=== PATIENT | male | born 1995 | race Caucasian/White ===

== ENCOUNTER 2018-06-27 07:18 | Emergency (ER) | payer BC, SELFPAY ==
[2018-06-27 07:20] VITALS: BP 152/99; PULSE 84; RESP 18; TEMP 36.9; O2SAT 100; BMI 35.7
--- NOTE | 2018-06-27 07:30 | ED.VISSUMM ---
- ER Visit Summary Date of Service: 06/27/18 Chief Complaint: Abdominal and shoulder pain History of Present Illness: The patient is a 23 M past medical or surgical history. Patient states the last 4-6 weeks he gets intermittent shoulder and right upper quadrant abdominal pain. At times the pain gets severe. Nausea and vomiting. It is not associated with food. He denies any hematemesis he denies any diarrhea or melena. He does get nausea and vomiting when the pain gets severe. Often this occurs in the middle the night and wakes him up. He denies any fever. He denies any abdominal trauma. He has never had any abdominal surgeries. Physical Examination: Well-appearing young male. Vital signs are stable and afebrile. He does not look septic or toxic. Currently is in no acute stress. H EENT exam is unremarkable. Neck is nontender. No lymphadenopathy. Lungs are clear to auscultation bilaterally. Heart is regular rhythm no murmur. Abdomen is soft. Nondistended. Normal bowel sounds. No peritoneal signs. Mild epigastric tenderness. No Nicholson sign. No McBurney's point tenderness. Nondistended no signs of obstruction. Positive bowel sounds. Moving all 4 extremities. Neurovascular intact. Back exam nontender. Right shoulder has full range of motion. No gross bony deformity. Nontender. 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 Tight sensation. And radial pulse. Neurologic exam is normal. Test Results: CBC showed a slightly elevated white count of 11.6 with a normal hemoglobin and hematocrit. Electrolytes unremarkable normal creatinine and gap. Liver enzymes are normal. Lipase was normal. Emergency Department Course and Treatment: Patient did not want anything for pain and nausea at this time. He will be worked up for possible gallbladder disease. Treatment Plan: Repeat exam at 15 patient doing well. Abdomen was benign. He denies and his family member salome all his test results and follow-up with his primary care physician for an outpatient ultrasound and further evaluation. They know to return if he is feeling worse. Disposition: Discharge Impression: Acute right upper quadrant abdominal pain of uncertain etiology This note was generated with [employer] dictation software. It may contain incorrect words, spelling, and punctuation that were not noted in review of the chart prior to signing ED Disposition - Plan for ED Patient: Disposition: Home or Assisted Living Chief Complaint: Abd Pain Instructions: ED Abdominal Pain Unkn Cause Referrals: Brendan Sarmiento MD [Primary Care Provider] - 1 Week Additional Instructions: Call follow-up your primary care physician you may need an outpatient ultrasound to evaluate her gallbladder for possible gallstones.
--- NOTE | 2018-06-27 07:33 | ED.DCSUM_ITS ---
- ER Visit Summary Date of Service: 06/27/18 Chief Complaint: Abdominal and shoulder pain History of Present Illness: The patient is a 23 M past medical or surgical history. Patient states the last 4-6 weeks he gets intermittent shoulder and right upper quadrant abdominal pain. At times the pain gets severe. Nausea and vomiting. It is not associated with food. He denies any hematemesis he denies any diarrhea or melena. He does get nausea and vomiting when the pain gets severe. Often this occurs in the middle the night and wakes him up. He denies any fever. He denies any abdominal trauma. He has never had any abdominal surgeries. Physical Examination: Well-appearing young male. Vital signs are stable and afebrile. He does not look septic or toxic. Currently is in no acute stress. H EENT exam is unremarkable. Neck is nontender. No lymphadenopathy. Lungs are clear to auscultation bilaterally. Heart is regular rhythm no murmur. Abdomen is soft. Nondistended. Normal bowel sounds. No peritoneal signs. Mild epigastric tenderness. No Nicholson sign. No McBurney's point tenderness. Nondistended no signs of obstruction. Positive bowel sounds. Moving all 4 extremities. Neurovascular intact. Back exam nontender. Right shoulder has full range of motion. No gross bony deformity. Nontender. 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 Tight sensation. And radial pulse. Neurologic exam is normal. Test Results: CBC showed a slightly elevated white count of 11.6 with a normal hemoglobin and hematocrit. Electrolytes unremarkable normal creatinine and gap. Liver enzymes are normal. Lipase was normal. Emergency Department Course and Treatment: Patient did not want anything for pain and nausea at this time. He will be worked up for possible gallbladder disease. Treatment Plan: Repeat exam at 15 patient doing well. Abdomen was benign. He denies and his family member salome all his test results and follow-up with his primary care physician for an outpatient ultrasound and further evaluation. They know to return if he is feeling worse. Disposition: Discharge Impression: Acute right upper quadrant abdominal pain of uncertain etiology This note was generated with [employer] dictation software. It may contain incorrect words, spelling, and punctuation that were not noted in review of the chart prior to signing ED Disposition - Plan for ED Patient: Disposition: Home or Assisted Living Chief Complaint: Abd Pain Instructions: ED Abdominal Pain Unkn Cause Referrals: Brendan Sarmiento MD [Primary Care Provider] - 1 Week Additional Instructions: Call follow-up your primary care physician you may need an outpatient ultrasound to evaluate her gallbladder for possible gallstones.
--- NOTE | 2018-06-27 07:34 | ED.DEP ---
ED Disposition - Plan for ED Patient: Disposition: Home or Assisted Living Chief Complaint: Abd Pain Instructions: ED Abdominal Pain Unkn Cause Referrals: Brendan Sarmiento MD [Primary Care Provider] - 1 Week Additional Instructions: Call follow-up your primary care physician you may need an outpatient ultrasound to evaluate her gallbladder for possible gallstones. Return to the ER if increasing pain, fever, vomiting blood or black or bloody stools. Otherwise follow-up your primary care physician for further evaluation.
[2018-06-27 07:47] LABS: Absolute Lymphocyte Count 1.45 X10^3/ul (0.83-4.51); Absolute Neutrophil Count 8.5 X10^3/uL (2.0-7.7); Basophil# 0.09 X10^3/uL; Basophil% 0.8 % (0-1); Eosinophil# 0.53 X10^3/uL; Eosinophils% 4.6 % (0-5); Hematocrit 44.9 % (40-54); Lymphocyte # 1.45 X10^3/ul (4.0); Lymphocyte % 12.5 % (19-41); Mean Corp Hgb Conc 35.6 g/gl (32-36); Mean Corpuscular Hgb 30.7 pg (27.0-32.0); Mean Platelet Vol. 9.5 fl (6.2-12.0); Monocyte# 0.99 X10^3/uL; Monocyte% 8.6 % (0-10); Neutrophil # 8.49 X10^3/uL (2.7-7.7); Neutrophil % 73.3 % (47-70); Platelet Count 297 K/mm3 (150-450); RBC Distribution Width CV 12.5 % (11.6-14.6); Red Blood Count 5.22 M/mm3 (4.6-6.2); White Blood Count 11.6 K/mm3 (4.4-11.0)
[2018-06-27 07:51] LABS: POSITIVE COUNT NO; POSITIVE DIFFERENTIAL NO; POSITIVE MORPHOLOGY NO
[2018-06-27 08:04] LABS: BUN 18 mg/dL (7-18); Creatinine, Serum 1.03 mg/dL (0.70-1.30); Estimated Creatinine Clearance 114.19 ml/min; Glucose 103 mg/dL (74-106)
[2018-06-27 08:05] LABS: AST(SGOT) 16 U/L (15-37); Alanine Aminotransfer ALT/SGPT 23 U/L (16-61); Albumin, Serum 3.7 g/dL (3.2-5.0); Alkaline Phosphatase 87 U/L (45-117); Anion Gap 8 (5-15); BUN/Creat Ratio 17.5 RATIO (10-20); Bilirubin, Direct 0.13 mg/dL (0.00-0.30); Calcium,Total 8.7 mg/dL (8.5-10.1); Chloride 105 mmol/L (98-107); EST Glomerular Filtration Rate 94 mL/min (>60); Est Glom Filt Rate - Afr Amer 114 mL/min (>60); Globulin 3.8 g/dL (2.2-4.2); Lipase 108 U/L (73-393); Potassium 3.8 mmol/L (3.5-5.1); Protein, Total 7.5 g/dL (6.4-8.2); Sodium Level 139 mmol/L (136-145)
== END 2018-06-27 08:27 | disposition home or self-care (01) ==
LOC: ED 07:48
PROVIDERS: Emergency Provider Emergency Medicine; Family Provider Pediatrics; PCP Pediatrics
DX: R10.11 Right upper quadrant pain (principal)
CPT/HCPCS: 80048; 80076; 83690; 85025; 99282; A4216

== ENCOUNTER 2018-07-31 06:05 | Emergency (ER) | payer BC, SELFPAY ==
[2018-07-31 06:06] VITALS: BP 160/109; PULSE 63; RESP 16; TEMP 36.6; O2SAT 99
[2018-07-31 06:10] VITALS: BP 160/109; PULSE 60; RESP 16; TEMP 36.6; O2SAT 99; BMI 36.3
--- NOTE | 2018-07-31 06:35 | US_ITS ---
STUDY: ABDOMINAL ULTRASOUND - RIGHT UPPER QUADRANT REASON FOR VISIT: Male, 23 years old. Epigastric pain. TECHNIQUE: Ultrasound evaluation of the right upper quadrant was performed with real-time and static granger-scale imaging. TECHNICAL QUALITY: Limited. Examination limited by bowel gas. COMPARISON: None. FINDINGS: Liver: The liver measures 16.4 cm. There is normal echogenicity of the liver. The bile ducts are within normal limits. There is hepatic color flow. The direction of portal flow is hepatopetal. There is no demonstrated mass lesion. Gallbladder: Normal distended gallbladder. The gallbladder wall measures 0.6 mm. There is a negative sonographic Nicholson's sign. There is no pericholecystic fluid. There are multiple echogenic structures within the gallbladder, consistent with multiple gallstones. There is surrounding dependent layering sludge within the gallbladder lumen. Common Bile Duct (C.B.D.): The common bile duct measures 2.8 mm. Pancreas: There is nonvisualization of the pancreas due to overlying bowel gas. Right Kidney: Normal size of the right kidney. The right kidney measures 11.1 x 5.9 x 5.9 cm. Normal renal cortex. The right cortex measures 2.0 cm. There is no demonstrated renal mass or cyst. There is no right hydronephrosis. US/Gallbladder IMPRESSION: 1. Multiple gallstones with layering sludge without evidence of pericholecystic fluid or wall thickening. No evidence of positive Nicholson sign. Clinically correlate for biliary colic. 2. Nonvisualized pancreas due to overlying bowel gas. Electronically Signed: Brois Felton DO at 8:22 EDT , Service support ,
[2018-07-31] MEDS: Morphine 4 MG/ML Syringe IV (06:45)
[2018-07-31] MEDS: 0.9% Normal Saline 1,000 ML 1000 ML IV (06:45)
[2018-07-31] MEDS: Ondansetron 4 MG/2 ML Vial IV ×2 (06:46→08:59)
--- NOTE | 2018-07-31 06:50 | ED.DCSUM_ITS ---
Addendum entered and electronically signed by Garrison Asif MD 07/31/18 08:46: Patient's gallbladder ultrasound showed multiple gallstones. Otherwise no acute abnormality. No pericholecystic fluid. No Nicholson sign. No gallbladder wall thickening. On repeat exam at oh 8:40 AM the patient is doing well. Abdomen is benign. He has no Nicholson sign. I discussed all test results with he and his father. He will be discharged home to follow-up with a local surgeon for discussion of cholecystectomy. He knows return if increasing pain, intractable vomiting or fever. Acute abdominal pain in the right upper quadrant secondary to biliary colic with newly diagnosed gallstones on ultrasound Addendum entered and electronically signed by Garrison Asif MD 07/31/18 08:05: Patient turned over to me by the overnight physician at oh 7:30 AM. Patient's labs included a CBC that is normal. White count of 8. Normal hemoglobin. BMP that is normal. Liver enzymes are normal. Lipase that is normal. Patient is being given a second dose of IV Zofran. We are awaiting the ultrasound report. Original Note: - ER Visit Summary Date of Service: 07/31/18 Chief Complaint: Abdominal pain History of Present Illness: The patient is a 23 M with right upper quadrant abdominal pain. This started about 2 hours ago. It radiates to his right shoulder. Associated with nausea, vomiting, and diarrhea. He had this previously around . He had had laboratory evaluation, but did not have imaging. His workup was unremarkable and he went home. He denies any other medical issues or past surgeries. No fevers or jaundice. No other pains. No cardiac or respiratory symptoms. Physical Examination: Afebrile. Vitals unremarkable except for a blood pressure of 160/109. The patient is alert and oriented. He appears uncomfortable but not toxic or in distress. Heart regular rate and rhythm. Lungs clear in all doan. Abdomen tender in the right upper quadrant. No guarding or rebound. Skin normal in color without pallor or jaundice. Test Results: CBC, CMP, lipase, and right upper quadrant ultrasound are pending. Emergency Department Course and Treatment: Patient was treated with morphine and Zofran while awaiting results. I am concerned for hepatobiliary pathology. At the time of this dictation, labs and ultrasound are pending. Patient has had his pain medication. His pain seems to have subsided. The oncoming doctor will check the results of the imaging and labs. Treatment Plan: As above Disposition: Pending further evaluation Impression: Pending further evaluation This note was generated with [employer] dictation software. It may contain incorrect words, spelling, and punctuation that were not noted in review of the chart prior to signing ED Disposition - Plan for ED Patient: Chief Complaint: Abd Pain Referrals: Care Physician,No Primary [Primary Care Provider] -
[2018-07-31 07:24] LABS: Absolute Neutrophil Count 4.7 X10^3/uL (2.0-7.7); Basophil# 0.06 X10^3/uL; Basophil% 0.7 % (0-1); Eosinophils% 7.1 % (0-5); Hemoglobin 15.6 g/dl (13.0-16.5); Lymphocyte % 24.9 % (19-41); Mean Corp Hgb Conc 33.9 g/gl (32-36); Mean Corpuscular Hgb 29.9 pg (27.0-32.0); Mean Corpuscular Volume 88.1 fL (80-94); Mean Platelet Vol. 9.9 fl (6.2-12.0); Monocyte# 0.94 X10^3/uL; Monocyte% 11.2 % (0-10); Neutrophil # 4.71 X10^3/uL (2.7-7.7); Platelet Count 285 K/mm3 (150-450); RBC Distribution Width CV 12.7 % (11.6-14.6); RBC Distribution Width SD 40.8 fl (35.1-43.9); Red Blood Count 5.22 M/mm3 (4.6-6.2); White Blood Count 8.4 K/mm3 (4.4-11.0)
[2018-07-31 07:25] LABS: POSITIVE COUNT NO; POSITIVE DIFFERENTIAL NO; POSITIVE MORPHOLOGY NO
[2018-07-31 07:53] LABS: ALB/GLOB Ratio 1.1 RATIO (0.9-2.4); AST(SGOT) 14 U/L (15-37); Alanine Aminotransfer ALT/SGPT 25 U/L (16-61); Albumin, Serum 3.9 g/dL (3.2-5.0); Alkaline Phosphatase 80 U/L (45-117); Anion Gap 6 (5-15); BUN 16 mg/dL (7-18); BUN/Creat Ratio 15.4 RATIO (10-20); Calcium,Total 8.5 mg/dL (8.5-10.1); Chloride 105 mmol/L (98-107); Creatinine, Serum 1.04 mg/dL (0.70-1.30); EST Glomerular Filtration Rate 93 mL/min (>60); Est Glom Filt Rate - Afr Amer 112 mL/min (>60); Estimated Creatinine Clearance 113.09 ml/min; Globulin 3.6 g/dL (2.2-4.2); Glucose 105 mg/dL (74-106); Lipase 115 U/L (73-393); Potassium 3.6 mmol/L (3.5-5.1); Protein, Total 7.5 g/dL (6.4-8.2); Sodium Level 140 mmol/L (136-145)
[2018-07-31 08:06] VITALS: BP 153/101; PULSE 91; RESP 20; O2SAT 97
--- NOTE | 2018-07-31 08:13 | NURSING ---
pt does not want zofran at this time. nausea is starting to pass on its own so he would like to wait
--- NOTE | 2018-07-31 08:47 | ED.DEP ---
ED Disposition - Plan for ED Patient: Disposition: Home or Assisted Living Chief Complaint: Abd Pain Instructions: Discharge Instructions for Gallstones Prescriptions: Ondansetron [Zofran Odt] 4 mg PO Q4H PRN PRN #10 tab.rapdis PRN Reason: Nausea Referrals: Silvia Garcia MD [STAFF PHYSICIAN] - As soon as possible Lc Colin MD [STAFF PHYSICIAN] - As soon as possible Additional Instructions: Return if intractable pain, vomiting or fever. Call and follow-up with a local surgeon I gave you [address] Silvia Garcia with the [facility] or Dr. Sanjay Colin who works here for the hospital. Both are good local general surgeons. Motrin and/or Tylenol for pain.
--- NOTE | 2018-07-31 08:53 | DCINST.ED_ITS ---
ED Disposition - Plan for ED Patient: Disposition: Home or Assisted Living Chief Complaint: Abd Pain Instructions: Discharge Instructions for Gallstones Prescriptions: Ondansetron [Zofran Odt] 4 mg PO Q4H PRN PRN #10 tab.rapdis PRN Reason: Nausea Referrals: Silvia Garcia MD [STAFF PHYSICIAN] - As soon as possible Lc Colin MD [STAFF PHYSICIAN] - As soon as possible Additional Instructions: Return if intractable pain, vomiting or fever. Call and follow-up with a local surgeon I gave you [address] Silvia Garcia with the [facility] or Dr. Sanjay Colin who works here for the hospital. Both are good local general surgeons. Motrin and/or Tylenol for pain.
[2018-07-31] MEDS: Ketorolac 30 MG/ML Syringe IV (08:58)
== END 2018-07-31 09:08 | disposition home or self-care (01) ==
PROVIDERS: Emergency Provider Emergency Medicine
DX: K80.70 Calculus of gallbladder and bile duct without cholecystitis without obstruction (principal); R10.11 Right upper quadrant pain
CPT/HCPCS: 76705; 80053; 83690; 85025; 96361; 96374; 96375; 96376; 99283; J7030; A4216; J2405

== ENCOUNTER 2018-08-09 08:55 | Day surgery (SDC) | payer BC, SELFPAY ==
--- NOTE | 2018-08-09 09:05 | EKG12_ITS ---
Test Reason : PREOP Blood Pressure : / mmHG Vent. Rate : 082 BPM Atrial Rate : 082 BPM P-R Int : 152 ms QRS Dur : 088 ms QT Int : 354 ms P-R-T Axes : 044 081 046 degrees QTc Int : 413 ms Normal sinus rhythm Normal ECG No previous ECGs available Confirmed by AMADA BROWN, TOM ([id number]), business editor FAUSTINA REGALADO ([id number] on 08/15/2018 11:12:21 AM Referred By: cL Colin Confirmed By:TOM YBARRA MD
[2018-08-09 09:24] VITALS: BP 132/68; PULSE 81; RESP 16; TEMP 35.9; O2SAT 98; BMI 36.2
--- NOTE | 2018-08-09 10:50 | PCM.OPRPT ---
Problem List (1) Calculus of gallbladder with acute on chronic cholecystitis without obstruction Status: Acute Report of Operation Date of Procedure: 08/09/18 Pre-Operative Diagnosis: k80.12 acute on chronic cholecystitis with cholelithiasis Post-Operative Diagnosis: same Surgery/Procedure Performed:: Laparoscopic cholecystectomy Type of Anesthesia:: General Anesthesiologist: Lyle Buckley Description of Procedure: Patient was brought into the operating room. Placed in the supine position. Under excellent general endotracheal intubation the abdomen was sterilely prepped and draped in the usual fashion. Local was injected infraumbilically. Incision was made. Dissection was carried down to the fascia. Fascia was grasped with a Cristina. Varies needle was placed inside the abdomen. The abdomen was insufflated to 15 torr. A 10/12 trocar was placed without difficulty. Patient was placed in the head up and rotated to the left position. Subxiphoid #5 trocar was placed, inferior to this another #5 trocar was placed, laterally a #5 trocar was placed. All of these under direct visualization without injury to underlying structures. Fundus of the gallbladder was grasped and retracted in a cephalad direction. Infundibulum was grasped and retracted in a lateral position. I dissected out the cystic duct. I placed hemoclips proximally and distally and ligated the duct. Identified the cystic artery. Placed hemoclips proximally distally and ligated the artery. I deliver the gallbladder from the gallbladder bed with use of electrocautery. I had no spillage of bile or stones. I placed the specimen in a specimen bag and delivered through the umbilical port without difficulty. I used electrocautery on the liver bed. I had excellent hemostasis. I removed the trochars under direct visualization. I had excellent hemostasis. I closed the fascia the umbilical port with a [id number] stitch of 0 Vicryl. Skin incisions were closed with septicum stitches of 4-0 Monocryl. Steri-Strips are applied. Sterile dressings were applied. The patient tolerated the procedure well. - Admit VTE Documentation VTE Present on Admission: No VTE Mechan Device Prophylaxis: SCD's VTE Pharm Prophylaxis ordered?: No Reason prophylaxis not ordered:: Treatment Not Indicated
--- NOTE | 2018-08-09 10:51 | DCINST_ITS ---
Discharge Diet: Light diet - advance as tolerated Discharge Activity: May Not Drive - for 2-3 days or while taking narcotic pain medications., - - Do not drive, work heavy equipment or sign legal documents for 24 hours. May shower in (days): 1 - with the bandage in place. Additional Activity Instructions:: Pain medication may cause nausea. You should typically eat light foods as you take your pain medications. Pain medication may also cause constipation. If this is a problem for you, please discuss with your doctor. Call your doctor if your incision/area has: Continuous Slow Oozing, Sudden Increased Bleeding, Increased Pain/ Swelling, Increased Redness, Foul Smelling Discharge Call your doctor if you observe: Fever of 101 or Higher Suture Line Care: Avoid Pulling/Pushing, Avoid Pinching/Bending Additional Dressing/Incision Instructions:: Leave operative bandaids on for 2 days. When you remove dressing, leave Steri-Strips on until your follow-up appointment, or until the Steri-Strips fall off on their own. Allergies/Adverse Reactions: Allergies No Known Allergies Allergy (Verified 08/03/18 08:08) Medications to take at Discharge Ondansetron [Zofran Odt] 4 mg PO Q4H PRN PRN #10 tab.rapdis 07/31/18 Ibuprofen 600 mg PO PRN PRN 08/03/18 Oxycodone HCl/Acetaminophen [Percocet 5/325] 1 - 2 tab PO Q4H PRN PRN 5 Days #30 tab 08/09/18 The following prescriptions were given: Oxycodone HCl/Acetaminophen [Percocet 5/325] 1 - 2 tab PO Q4H PRN PRN 5 Days #30 tab PRN Reason: Pain Primary Care Physician: Care Physician,No Primary [Primary Care Provider] - Test Results: Test results from this visit will be discussed in further detail at your follow- up appointment, if applicable. Please Follow Up With: Lc Colin MD - Please call [phone] to schedule an appointment. When: 7 days after your surgery.
[2018-08-09] MEDS: Cefazolin 2 GM in 0.9% Normal Saline 100 ML IV (10:54)
--- NOTE | 2018-08-09 11:00 | GALL_PTH ---
PATIENT: KARIS SHOEMAKER [place] [facility] [place][id number] AGE/SX: 23/M ROOM: RE08/09/[address]: Dr. Lc Colin MD : [id number] BED: DIS: 08/09/2018 SPEC #: [id number] RECD: 08/09/18 14:55 STATUS: EMANUEL TAM #: [id number] ANNA: 08/09/18 11:[address]: Lc Colin DEPT: SURGICAL PATHOLOGY RECD BY: Ezio Ovalles ENTERED: 08/10/18 08:23 SP TYPE: EDI DANIELS DR: No Primary Care Phys Tissues: Gallbladder, NOS Procedures: Surgery Specimen Level III HEADER OPERATION: Laparoscopic cholecystectomy PRE-OP DIAGNOSIS: Calculus of gallbladder with acute on chronic cholecystitis without obstruction TISSUE SUBMITTED: Gallbladder MICROSCOPIC DIAGNOSIS Gallbladder: Chronic cholecystitis and cholelithiasis. SJ:trey 08/11/18 MICROSCOPIC DESCRIPTION Slides are reviewed. GROSS DESCRIPTION Received is one container labeled with the patient's name and designated gallbladder. The specimen consists of a gallbladder measuring 8 cm in length and 3 cm in diameter. The portion of cystic duct measures 1 cm in length and 0.5 cm in diameter. The external surface is pink-patel, smooth and glistening for the most part. Focally it is granular, hemorrhagic and contains cautery artifact. The gallbladder contains thick green-yellow mucoid bile and multiple brown mulberry stones measuring in aggregate 4 x 3.5 x 0.5 cm and 0.3 to 0.5 cm in greatest dimension. The mucosa is bile-stained and without any mass lesions. The gallbladder wall measures up to 0.3 cm in thickness. A few of the stones are also present in the cystic duct. Sawsmith sections from the gallbladder and the cystic duct are submitted in one cassette. / WAGNER:trey 08/10/18 TC:3 CPT: 32743
[2018-08-09] MEDS: Bupivacaine Mpf 0.5% 30 ML VIAL (11:59)
[2018-08-09 12:15] VITALS: BP 123/69; BP 139/91; PULSE 69; PULSE 94; RESP 18; TEMP 36.2; O2SAT 93
[2018-08-09 12:29] VITALS: BP 123/69; BP 141/89; PULSE 85; RESP 18; O2SAT 93
[2018-08-09 12:45] VITALS: BP 123/69; BP 134/93; PULSE 78; RESP 16; O2SAT 98
[2018-08-09 12:51] VITALS: BP 123/69; BP 135/95; PULSE 92; RESP 16; TEMP 36.3; O2SAT 94
[2018-08-09] MEDS: Ondansetron ODT 4 MG Tablet PO (14:36)
[2018-08-09 14:40] VITALS: BP 123/69; BP 124/66; PULSE 78; RESP 16; TEMP 36.4; O2SAT 94
== END 2018-08-09 14:50 | disposition home or self-care (01) ==
LOC: SDC 08:58 → AC 08:58
PROVIDERS: Referring Provider Surgery; Visit Provider Surgery
PROC: (CPT 47610; principal; 2018-08-09 10:40)
DX: K80.10 Calculus of gallbladder with chronic cholecystitis without obstruction (principal); Z79.899 Other long term (current) drug therapy
CPT/HCPCS: 00790; 47562; 88304; 93005; J7120; J2405

== ENCOUNTER 2020-11-27 16:48 | Emergency (ER) | payer BC, OTHER, SELFPAY ==
[2020-11-27 16:48] VITALS: BP 153/81; PULSE 106; RESP 19; TEMP 36.7; O2SAT 99; BMI 34.8
--- NOTE | 2020-11-27 17:22 | ED.VIS.GEN ---
History of Present Illness Chief Complaint: Back Narrative: Patient is a 25-year-old male who presents with lower back pain. 2 days ago he was at work. He leaned over to lift something up with his arms and felt a pop and developed lower back pain. He does have some pain and numbness radiating to the lateral left thigh. He complains of tingling in his toes. No weakness. No urinary retention. No fecal incontinence. No prior back surgeries. No abdominal pain. He has seen workers comp/[employer] the last 3 days. He was referred for physical therapy but has not had this approved yet. He was cleared to return to work. He states he came here because he wanted a second opinion. Past Medical History - Allergies and Home Meds Allergies/Adverse Reactions: Allergies No Known Allergies Allergy (Verified 11/27/20 16:51) Primary Care Physician: Care Physician,No Primary [Primary Care Provider] - Past Medical History: None Smoking Status: Never smoker Review of Systems All systems negative except as indicated General: Denies: Fever Eyes: Denies: Visual changes - bilaterally ENT: Denies: Bilateral ear pain Cardiovascular: Denies: Chest pain Respiratory: Denies: Dyspnea Gastrointestinal: Denies: Abdominal pain Musculoskeletal: Reports: Back pain Allergy: Denies: Uticaria Physical Exam Vital Signs/Narrative: Vital Signs Temp Pulse Resp BP Pulse Ox 11/27/20 16:48 98.0 F 106 H 19 H 153/81 H 99 Inital Vital Signs reviewed: Yes General: Well nourished Head: Normocephalic Eyes: EOMI ENT: Moist mucous membranes Neck: Supple Cardiovascular: Regular rate, Regular rhythm Respiratory: No distress, CTA bilaterally Abdomen: Soft, Nontender Back: - - Left paraspinal lumbar tenderness no midline tenderness Skin: Normal color Neurological: Alert, - - Normal strength and sensation of the lower extremities 5 out of 5 dorsiflexion, plantarflexion, extensor hallucis longus Psychological: Normal affect Diagnostic/Tx/Re-eval - Medical Decision Making Patient's presentation is most consistent with lumbosacral strain and lumbar radiculopathy. He has no evidence of acute surgical pathology such as cauda equina syndrome or epidural abscess. We will add on oral steroid given his radicular component of pain. I did advise that I do believe physical therapy is the most appropriate next step. Patient discharged. ED Disposition - Plan for ED Patient: Disposition: Home or Assisted Living Diagnosis: Lumbosacral strain, Lumbar radiculopathy Instructions: ED Back Sprain/Strain, ED Sciatica Prescriptions: predniSONE tablet 60 mg PO DAILY #15 tab Prescription Printed Referrals: Care Physician,No Primary [Primary Care Provider] -
[2020-11-27 18:02] VITALS: PULSE 92; RESP 17; O2SAT 99
== END 2020-11-27 18:02 | disposition home or self-care (01) ==
PROVIDERS: Emergency Provider Emergency Medicine; PCP Nurse Practitioner Primary Care
DX: M54.16 Radiculopathy, lumbar region (principal); S39.012A Strain of muscle, fascia and tendon of lower back, initial encounter; X50.0XXA Overexertion from strenuous movement or load, initial encounter; Y93.89 Activity, other specified; Y92.89 Other specified places as the place of occurrence of the external cause; Y99.0 Civilian activity done for income or pay
CPT/HCPCS: 99282